=== PATIENT | female | born 1980 | race Caucasian/White ===

== ENCOUNTER 2025-08-02 14:44 | Emergency (ER) | payer OTHER ==
[2025-08-02 15:01] VITALS: BMI 29.0
[2025-08-02 18:02] LABS: ABSOLUTE IMMATURE GRANULOCYTES 0.01 x10^3/uL (0.0-0.031); BASOPHILS # 0.01 x10^3/uL (0.01-0.08); EOSINOPHIL % 0.0 % (0.7-5.8); EOSINOPHILS # 0.00 x10^3/uL (0.04-0.36); MCHC 30.2 g/dl (32.2-35.5); MEAN CELL VOLUME 81.9 fl (79.4-94.8); MEAN PLT VOLUME 9.2 fl (9.4-12.3); MONOCYTE # 0.52 x10^3/uL (0.24-0.86); MONOCYTE % 9.8 % (4.7-12.5); RDW 19.4 % (12.2-17.1)
[2025-08-02 18:13] LABS: INR 0.99 (0.83-1.09); PROTHROMBIN TIME (PATIENT) 10.8 SEC (9.7-13.0)
[2025-08-02 18:16] LABS: GLUCOSE,RANDOM 88.0 mg/dL (74-106); TOT PROT 8.0 g/dl (6.4-8.2)
[2025-08-02 18:17] LABS: CO2 21.0 mmol/L (21-32)
[2025-08-02 18:18] LABS: ALK PHOS 57.0 U/L (40-150)
[2025-08-02 18:21] LABS: CREATININE 0.69 mg/dL (0.55-1.3); SGOT/AST 20.0 U/L (5-34); SGPT/ALT 18.0 U/L (0-55)
[2025-08-02 18:43] LABS: HCV DIAGNOSTIC IN-HOUSE W/RFLX NON-REACTIVE (NONREACTIVE); HIV INTERPRETATION NEGATIVE (NEGATIVE)
[2025-08-02 19:53] VITALS: BP 125/76; PULSE 82; RESP 17; TEMP 97.6
== END 2025-08-02 19:45 | disposition home or self-care (01) ==
LOC: JER 14:44
DX: K59.00 Constipation, unspecified (principal); R10.32 Left lower quadrant pain
CPT/HCPCS: 36415; 74177-TC; 80053; 82272; 84703; 85025; 85610; 86803; 86850; 86900; 86901; 87389; 99285-25; Q9967